=== PATIENT | female | born 1970 | race Caucasian/White ===

== ENCOUNTER → 2016-11-03 | Outpatient (CLI) | payer BC ==
[~2016-11-03] MED LIST: ALUMCHW6 PO; ESTRD2 PO; LANS30CA12 PO; LISI10TA PO
== END | disposition home or self-care (01) ==
LOC: C.RDSM 14:30
PROVIDERS: ATTEND Orthopaedic Surgery Sports Medicine
DX: M54.2 Cervicalgia (principal); S29.012A Strain of muscle and tendon of back wall of thorax, initial encounter; X58.XXXA Exposure to other specified factors, initial encounter; M25.512 Pain in left shoulder

== ENCOUNTER 2023-12-21 09:18 | Observation (INO) ==
[2023-12-21] MEDS: ACETAMINOPHEN 1,000 MG/100 ML VIAL IV STA (10:03)
[2023-12-21] MEDS: FAMOTIDINE 20MG IV PUSH 20 MG/5 ML SYR IV STA (10:03)
[2023-12-21] MEDS: SODIUM CHLORIDE 0.9% 1,000 ML IV SCH (10:03)
[2023-12-21 10:09] LABS: Basophils # (auto) 0.07 K/uL (0.00-0.20); Basophils % (auto) 0.8 %; Eosinophils # (auto) 0.08 K/uL (0.00-0.50); Hematocrit (blood only) 42.6 % (37.0-47.0); Hemoglobin 13.8 g/dl (12.0-16.0); Immature Granulocytes # (auto) 0.04 K/uL (0.01-0.20); Immature Granulocytes % (auto) 0.5 %; Lymphocytes # (auto) 1.92 K/uL (1.20-3.40); Mean Corpuscular Hemoglobin 30.2 pg (25.0-34.0); Mean Corpuscular Hgb Conc 32.4 g/dL (32.0-36.0); Mean Corpuscular Volume 93.2 fL (80.0-100.0); Mean Platelet Volume 9.7 fL (9.4-12.4); Monocytes # (auto) 0.54 K/uL (0.11-0.59); Monocytes % (auto) 6.5 %; Neutrophils % (auto) 68.2 %; Platelet Count 382 K/uL (130-400); RDW Coefficient of Variation 12.6 % (11.5-14.5); RDW Standard Deviation 43.2 fL (36.4-46.3); Red Blood Count 4.57 M/uL (4.20-5.40); White Blood Count 8.35 K/ul (4.8-10.8)
--- NOTE | 2023-12-21 10:09 | Emergency Department Note ---
Impression & Plan Chest pain, Dyspnea, Lightheadedness ED Provider Note ED Provider Note NAME: DEBBIE WYMAN AGE:53 SEX: Female : 1970 ARRIVES VIA: Private vehicle INFORMANT: Patient ED PROVIDER(s): Mirian Murdock DO CHIEF COMPLAINT: Chest pain, shortness of breath HPI: This is a 53-year-old female who presents emergency department due to concern for chest pain and shortness of breath. Patient states symptoms began yesterday. She states she noticed it was worse with exertion but was still present at rest. She states she also feels lightheaded when she stands and walks. She denies any recent URI symptoms, fevers or chills. No recent GERD type symptoms. She states she does have a history of asthma but this feels very different than her usual asthma exacerbation. She denies any abdominal pain, change in urine, or change in bowel movements. She states last week she noted some intermittent left foot swelling although states she did not notice any this morning. She states the chest pain is central and slightly left-sided and does radiate into her left upper extremity. She states her left upper extremity feels intermittently swollen and tingly additionally. No prior similar episodes. No history of heart problems. PAST MEDICAL HISTORY:See Below PAST SURGICAL HISTORY:See Below FAMILY HISTORY:See Below SOCIAL HISTORY:See Below HOME MEDICATIONS:See Below ALLERGIES:See Below VITALS:See Below PHYSICAL EXAMINATION: GENERAL: alert, well appearing, well nourished, no distress, non-toxic EYE EXAM: normal conjunctiva, PERRL and EOM's grossly intact OROPHARYNX: no exudate, no erythema, lips, buccal mucosa, and tongue normal and mucous membranes are moist NECK: supple, no nuchal rigidity, no adenopathy, non-tender LUNGS: Clear to auscultation. Normal chest wall mechanics, no w/r/r HEART: no murmurs, S1 normal and S2 normal, pain with palpation in the inferior central chest over the lower half of the sternum as well as at the left sternal border ABDOMEN: abdomen soft, non-tender, normo-active bowel sounds, no masses, no rebound or guarding. BACK: Back is symmetrical on inspection and there is no deformity, no midline tenderness, no CVA tenderness. SKIN: no rashes, petechiae, orbruising UPPER EXTREMITIES: upper extremities are grossly normal. FROM, nml pulses b/l. LOWER EXTREMITIES: No pitting edema. FROM, nml pulses b/l. NEURO EXAM: Normal sensorium, cranial nerves II-XII grossly intact, normal speech, no facial droop,nogross weakness of arms, no gross weakness of legs. Gross sensation intact. No ataxia. Vital Signs: reviewed and remarkable Differential Diagnosis: acute coronary syndrome, pericarditis, pulmonary embolus, aortic dissection, pneumonia, pneumothorax, musculoskeletal pain, shingles, GERD, GI bleed, as well as others were considered MEDICAL DECISION MAKING: This is a 53-year-old female who presents emergency department due to concern for chest pain and shortness of breath. Labs drawn and sent, IV established, EKG and chest x-ray performed bedside interpreted by me and was monitored on telemetry. No acute EKG changes noted and initial troponin negative. D-dimer however markedly elevated so after additional discussion at bedside with the patient, she was sent for CT angiography of the chest. Patient started on gentle IV fluid hydration due to concern for additional orthostatic lightheadedness, given IV Tylenol initially. She was also given IV Pepcid and IV Zofran. Patient sent for CT angiography of the chest which was ultimately reassuring once read by radiology. IV Toradol and IV fentanyl given additionally for pain. Bio fire nasal swab sent and ultimately negative, and left lower extremity Doppler due to swelling last week performed and also negative. Patient with persistent chest pain and shortness of breath with any attempts at ambulation. Lightheadedness only present when she first stands up. Patient otherwise had a nonfocal neuroexam. Given unclear etiology of symptoms and persistence despite reassuring evaluation thus far, case discussed with the hospitalist team for additional evaluation and management. Consultation(s): 1508: Discussed with Maldonado Polanco hospitalist team, for additional evaluation and management. ER Treatment Provided: See below Diagnostics Interpreted By Me: -ECG: Normal sinus at 83, normal axis, normal intervals, no acute ST/T wave changes -Cardiac Monitoring: An order was placed for continuous cardiac monitoring. The monitor shows a rate of 80 with normal sinus rhythm. -Laboratory studies: As stated above and show below. -Imaging studies: X-ray Chest: A single view study of the chest was reviewed and was negative for cardiomegaly, focal infiltrate, effusion, pulmonary edema, or wide mediastinum. Triage Nursing Note Reviewed Prior/Outside Records Reviewed Past Med/Surg History Problem List (Updated 12/21/23 @ 15:40 by Jeny Smiley PA-C) GERD (gastroesophageal reflux disease) HTN (hypertension) HAMIDA (obstructive sleep apnea) Asthma Chronic pain syndrome S/P appendectomy Lightheadedness (Acute) Dyspnea (Acute) Chest pain (Acute) Otalgia of left ear (Acute) Right flank pain (Acute) Right sided abdominal pain (Acute) Medical History (Updated 12/21/23 @ 15:40 by Jeny Smiley PA-C) History of asthma History of hypertension Surgical History (Updated 12/21/23 @ 15:41 by Jeny Smiley PA-C) Hx of submandibular gland removal S/P cholecystectomy S/P total abdominal hysterectomy History of appendectomy Family History Other Asthma Diabetes Hypertension Social History Smoking Status: Never smoker Second Hand Exposure: No; Do You Dip or Chew Tobacco: No; Hx Alcohol Use: No Hx Substance Use: No Preferred Language: Vincentian Communication Ability: Effective Director Software Development Required: No Beliefs That Will Affect Care: None Current Living Situation: Spouse Feels Safe at Home: Yes Safety Concerns: Feels Safe At This Time Assistive Devices: None Allergies Allergies Allergy/AdvReac Type Severity Reaction Status Date / Time amoxicillin Allergy Severe PCN-EDEMA Verified 12/21/23 12:49 FACE/LIPS/TONGUE cephalexin Allergy Severe SWELLING Verified 12/21/23 12:49 OF FACE & TONGUE codeine Allergy Severe FACE & Verified 12/21/23 12:49 TONGUE SWELL corn Allergy Severe Hives Unverified 12/21/23 12:49 Penicillins Allergy Severe EDEMA OF Verified 12/21/23 12:49 FACE/LIPS/TONGUE, SHORT OF BREATH/HIVES Sulfa (Sulfonamide Allergy Severe FACE Verified 12/21/23 12:49 Antibiotics) SWELLING/HIVES carisoprodol Allergy Intermediate HIVES/HEADA Verified 12/21/23 12:49 JENNA lorazepam Allergy Intermediate HEADACHES Verified 12/21/23 12:49 montelukast [From [facility]] Allergy Intermediate RASH/TONGUE Verified 12/21/23 12:49 FELT THICK duloxetine Allergy Unknown ON Verified 12/21/23 12:49 [facility] prednisone Allergy Unknown ON Verified 12/21/23 12:49 [facility] carbamazepine AdvReac Intermediate CHEST Verified 12/21/23 12:49 TIGHTNESS/N&V/SEVERE IBARRA/WEAKNESS clindamycin AdvReac Intermediate Gastrointestinal Verified 12/21/23 12:49 Upset gabapentin AdvReac Intermediate CHEST Verified 12/21/23 12:49 TIGHTNESS/N&V/SEVERE IBARRA/WEAKNESS metronidazole AdvReac Intermediate GI Verified 12/21/23 12:49 UPSET/HEADACHE Home Meds Home Medications Medication Instructions Recorded Confirmed albuterol sulfate 2.5 mg/3 mL 2.5 mg inhalation Q4H PRN 02/12/21 12/21/23 (0.083 %) solution for nebulization Shortness Of Breath Or Wheezing albuterol sulfate 90 mcg/actuation 2 puff inhalation QID PRN 02/12/21 12/21/23 aerosol inhaler (ProAir HFA) Shortness Of Breath Or Wheezing aluminum hydrox-magnesium carb 95 30 ml PO DAILY 02/12/21 12/21/23 mg-358 mg/15 mL oral suspension (Gaviscon) estradiol 1 mg tablet 1 mg PO QAM 02/12/21 12/21/23 fluconazole 150 mg tablet 150 mg PO UD PRN YEAST INFECTION 02/12/21 12/21/23 lansoprazole 30 mg capsule,delayed 30 mg PO QAM 02/12/21 12/21/23 release lisinopril 20 mg tablet 20 mg PO HS 12/13/23 12/21/23 nystatin 100,000 unit/gram topical 1 applic topical DIRECTED PRN 12/13/23 12/21/23 cream Skin Irritation terconazole 0.8 % vaginal cream 1 applic vaginal UD PRN -- 12/21/23 12/21/23 Results & Data (ED) Vital Signs Vital Signs - 24 hr 12/21/23 09:21 12/21/23 09:42 12/21/23 09:42 Temperature 36.3 C L Temperature Source Temporal Artery Scan Pulse Rate 80 82 Pulse Rate from SpO2 Sensor 80 Respiratory Rate 18 15 Respiratory Effort / Characteristics Non-Labored Respiratory Depth Normal Respiratory Pattern Regular Blood Pressure 161/90 H Blood Pressure Mean 113 Pulse Oximetry 98 96 Oxygen Delivery Method Room Air Room Air Sepsis Recent Fever Within 48 Hours No Sepsis New/Unexplained Change in Mental Status N/A Sepsis Action Taken by Nursing No Action Required 12/21/23 09:50 12/21/23 10:00 12/21/23 10:00 Temperature Temperature Source Pulse Rate 80 75 Pulse Rate from SpO2 Sensor 82 74 Respiratory Rate 18 19 Respiratory Effort / Characteristics Respiratory Depth Respiratory Pattern Blood Pressure 143/82 H Blood Pressure Mean 97 Pulse Oximetry 99 98 Oxygen Delivery Method Sepsis Recent Fever Within 48 Hours Sepsis New/Unexplained Change in Mental Status Sepsis Action Taken by Nursing 12/21/23 10:10 12/21/23 10:16 12/21/23 10:20 Temperature Temperature Source Pulse Rate 77 68 68 Pulse Rate from SpO2 Sensor 77 68 Respiratory Rate 17 16 Respiratory Effort / Characteristics Respiratory Depth Respiratory Pattern Blood Pressure Blood Pressure Mean Pulse Oximetry 98 97 Oxygen Delivery Method Sepsis Recent Fever Within 48 Hours Sepsis New/Unexplained Change in Mental Status Sepsis Action Taken by Nursing 12/21/23 10:30 12/21/23 10:31 12/21/23 10:31 Temperature Temperature Source Pulse Rate 67 68 Pulse Rate from SpO2 Sensor 66 68 Respiratory Rate 16 15 Respiratory Effort / Characteristics Respiratory Depth Respiratory Pattern Blood Pressure 135/77 Blood Pressure Mean 92 Pulse Oximetry 98 97 Oxygen Delivery Method Sepsis Recent Fever Within 48 Hours Sepsis New/Unexplained Change in Mental Status Sepsis Action Taken by Nursing 12/21/23 11:00 12/21/23 11:00 12/21/23 11:36 Temperature Temperature Source Pulse Rate 68 Pulse Rate from SpO2 Sensor 69 88 Respiratory Rate 16 Respiratory Effort / Characteristics Respiratory Depth Respiratory Pattern Blood Pressure 145/73 H Blood Pressure Mean 98 Pulse Oximetry 97 99 Oxygen Delivery Method Sepsis Recent Fever Within 48 Hours Sepsis New/Unexplained Change in Mental Status Sepsis Action Taken by Nursing 12/21/23 12:18 12/21/23 12:30 12/21/23 12:30 Temperature Temperature Source Pulse Rate 68 71 Pulse Rate from SpO2 Sensor Respiratory Rate 14 20 Respiratory Effort / Characteristics Respiratory Depth Respiratory Pattern Blood Pressure 158/84 H Blood Pressure Mean 109 Pulse Oximetry 95 Oxygen Delivery Method Sepsis Recent Fever Within 48 Hours Sepsis New/Unexplained Change in Mental Status Sepsis Action Taken by Nursing 12/21/23 13:00 12/21/23 13:01 12/21/23 13:01 Temperature Temperature Source Pulse Rate 67 69 Pulse Rate from SpO2 Sensor Respiratory Rate 18 18 Respiratory Effort / Characteristics Respiratory Depth Respiratory Pattern Blood Pressure 135/81 Blood Pressure Mean 90 Pulse Oximetry Oxygen Delivery Method Sepsis Recent Fever Within 48 Hours Sepsis New/Unexplained Change in Mental Status Sepsis Action Taken by Nursing 12/21/23 13:30 12/21/23 13:30 12/21/23 14:49 Temperature Temperature Source Pulse Rate 76 Pulse Rate from SpO2 Sensor 67 Respiratory Rate 24 Respiratory Effort / Characteristics Respiratory Depth Respiratory Pattern Blood Pressure 126/83 Blood Pressure Mean 97 Pulse Oximetry 98 Oxygen Delivery Method Sepsis Recent Fever Within 48 Hours Sepsis New/Unexplained Change in Mental Status Sepsis Action Taken by Nursing 12/21/23 14:50 12/21/23 14:50 12/21/23 15:00 Temperature Temperature Source Pulse Rate 75 Pulse Rate from SpO2 Sensor 74 Respiratory Rate 19 Respiratory Effort / Characteristics Respiratory Depth Respiratory Pattern Blood Pressure 142/83 H 145/79 H Blood Pressure Mean 104 107 Pulse Oximetry 98 Oxygen Delivery Method Sepsis Recent Fever Within 48 Hours Sepsis New/Unexplained Change in Mental Status Sepsis Action Taken by Nursing 12/21/23 15:00 12/21/23 15:30 12/21/23 15:30 Temperature Temperature Source Pulse Rate 64 64 Pulse Rate from SpO2 Sensor 65 65 Respiratory Rate 15 16 Respiratory Effort / Characteristics Respiratory Depth Respiratory Pattern Blood Pressure 141/83 H Blood Pressure Mean 107 Pulse Oximetry 97 97 Oxygen Delivery Method Sepsis Recent Fever Within 48 Hours Sepsis New/Unexplained Change in Mental Status Sepsis Action Taken by Nursing 12/21/23 16:00 12/21/23 16:00 Temperature Temperature Source Pulse Rate 79 Pulse Rate from SpO2 Sensor 78 Respiratory Rate 23 Respiratory Effort / Characteristics Respiratory Depth Respiratory Pattern Blood Pressure 156/84 H Blood Pressure Mean 98 Pulse Oximetry 98 Oxygen Delivery Method Sepsis Recent Fever Within 48 Hours Sepsis New/Unexplained Change in Mental Status Sepsis Action Taken by Nursing Laboratory Data 12/21/23 09:48 12/21/23 09:48 Lab Results 12/21/23 12/21/23 12/21/23 Range/Units 09:48 10:23 13:42 WBC 8.35 (4.8-10.8) K/ul RBC 4.57 (4.20-5.40) M/uL Hgb 13.8 (12.0-16.0) g/dl Hct 42.6 (37.0-47.0) % MCV 93.2 (80.0-100.0) fL MCH 30.2 (25.0-34.0) pg MCHC 32.4 (32.0-36.0) g/dL RDW Std Deviation 43.2 (36.4-46.3) fL RDW Coeff of Olena 12.6 (11.5-14.5) % Plt Count 382 (130-400) K/uL MPV 9.7 (9.4-12.4) fL Immature Gran % (Auto) 0.5 % Neut % (Auto) 68.2 % Lymph % (Auto) 23.0 % Stoddard % (Auto) 6.5 % Eos % (Auto) 1.0 % Baso % (Auto) 0.8 % Neut # (Auto) 5.70 (1.40-6.50) K/uL Lymph # (Auto) 1.92 (1.20-3.40) K/uL Stoddard # (Auto) 0.54 (0.11-0.59) K/uL Eos # (Auto) 0.08 (0.00-0.50) K/uL Baso # (Auto) 0.07 (0.00-0.20) K/uL Immature Gran # (Auto) 0.04 (0.01-0.20) K/uL D-Dimer Cancelled 2180 H* Sodium 141 (136-145) mmol/L Potassium 3.8 (3.5-5.1) mmol/L Chloride 104 (98-107) mmol/L Carbon Dioxide 26 (21-32) mmol/L Anion Gap 11 (3-11) BUN 7 (6-23) mg/dl Creatinine 0.97 (0.6-1.2) mg/dl Est Cr Clr Drug Dosing 74.8 ml/min Est GFR ( Amer) 77.8 ml/min Est GFR (Non-Af Amer) 67.2 ml/min BUN/Creatinine Ratio 7.2 L (10-20) Glucose 103 H (70-99(Fasting)) mg/dl Calcium 10.3 (8.6-10.3) mg/dl Magnesium 2.2 (1.7-2.4) mg/dl Total Bilirubin 0.4 (0.2-1.0) mg/dl AST 17 (13-39) U/L ALT 13 (7-52) U/L Alkaline Phosphatase 102 (34-104) U/L Troponin I High Sens 2.8 (0-14) pg/ml Total Protein 8.2 (6.0-8.3) gm/dl Albumin 5.0 (3.4-5.0) gm/dl Globulin 3.2 (2.5-4.0) gm/dl Albumin/Globulin Ratio 1.6 (0.9-2) Lipase 28 (11-82) U/L TSH 3.084 (0.300-4.500) uIu/ml Adenovirus (PCR) Not Detected (NotDetected) B. pertussis DNA (PCR) Not Detected (NotDetected) B.parapertussis DNA PCR Not Detected (NotDetected) C. pneumoniae DNA (PCR) Not Detected (NotDetected) Coronavirus OC43 (PCR) Not Detected (NotDetected) Coronavirus HKU1 (PCR) Not Detected (NotDetected) Coronavirus 229E (PCR) Not Detected (NotDetected) SARS-CoV-2 (PCR) Not Detected (NotDetected) Coronavirus NL63 (PCR) Not Detected (NotDetected) Human Metapneumovir PCR Not Detected (NotDetected) Influenza Type A (PCR) Not Detected (NotDetected) Influenza Type B (PCR) Not Detected (NotDetected) M. pneumoniae (PCR) Not Detected (NotDetected) Parainfluenza 1 (PCR) Not Detected (NotDetected) Parainfluenza 2 (PCR) Not Detected (NotDetected) Parainfluenza 3 (PCR) Not Detected (NotDetected) Parainfluenza 4 (PCR) Not Detected (NotDetected) RSV (PCR) Not Detected (NotDetected) Entero/Rhino (PCR) Not Detected (NotDetected) 12/21/23 Range/Units 15:21 WBC (4.8-10.8) K/ul RBC (4.20-5.40) M/uL Hgb (12.0-16.0) g/dl Hct (37.0-47.0) % MCV (80.0-100.0) fL MCH (25.0-34.0) pg MCHC (32.0-36.0) g/dL RDW Std Deviation (36.4-46.3) fL RDW Coeff of Olena (11.5-14.5) % Plt Count (130-400) K/uL MPV (9.4-12.4) fL Immature Gran % (Auto) % Neut % (Auto) % Lymph % (Auto) % Stoddard % (Auto) % Eos % (Auto) % Baso % (Auto) % Neut # (Auto) (1.40-6.50) K/uL Lymph # (Auto) (1.20-3.40) K/uL Stoddard # (Auto) (0.11-0.59) K/uL Eos # (Auto) (0.00-0.50) K/uL Baso # (Auto) (0.00-0.20) K/uL Immature Gran # (Auto) (0.01-0.20) K/uL D-Dimer Sodium (136-145) mmol/L Potassium (3.5-5.1) mmol/L Chloride (98-107) mmol/L Carbon Dioxide (21-32) mmol/L Anion Gap (3-11) BUN (6-23) mg/dl Creatinine (0.6-1.2) mg/dl Est Cr Clr Drug Dosing ml/min Est GFR ( Amer) ml/min Est GFR (Non-Af Amer) ml/min BUN/Creatinine Ratio (10-20) Glucose (70-99(Fasting)) mg/dl Calcium (8.6-10.3) mg/dl Magnesium (1.7-2.4) mg/dl Total Bilirubin (0.2-1.0) mg/dl AST (13-39) U/L ALT (7-52) U/L Alkaline Phosphatase (34-104) U/L Troponin I High Sens 4.5 (0-14) pg/ml Total Protein (6.0-8.3) gm/dl Albumin (3.4-5.0) gm/dl Globulin (2.5-4.0) gm/dl Albumin/Globulin Ratio (0.9-2) Lipase (11-82) U/L TSH (0.300-4.500) uIu/ml Adenovirus (PCR) (NotDetected) B. pertussis DNA (PCR) (NotDetected) B.parapertussis DNA PCR (NotDetected) C. pneumoniae DNA (PCR) (NotDetected) Coronavirus OC43 (PCR) (NotDetected) Coronavirus HKU1 (PCR) (NotDetected) Coronavirus 229E (PCR) (NotDetected) SARS-CoV-2 (PCR) (NotDetected) Coronavirus NL63 (PCR) (NotDetected) Human Metapneumovir PCR (NotDetected) Influenza Type A (PCR) (NotDetected) Influenza Type B (PCR) (NotDetected) M. pneumoniae (PCR) (NotDetected) Parainfluenza 1 (PCR) (NotDetected) Parainfluenza 2 (PCR) (NotDetected) Parainfluenza 3 (PCR) (NotDetected) Parainfluenza 4 (PCR) (NotDetected) RSV (PCR) (NotDetected) Entero/Rhino (PCR) (NotDetected) Administered Medications Acetaminophen (Acetaminophen 325 Mg Tab) 650 mg PO Q4H PRN PRN Reason: Moderate Pain (Scale 4, 5, 6) Stop: 01/20/24 19:12 Last Admin: 12/21/23 21:44 Dose: 650 mg Documented By: WALLY Estradiol (Estradiol 1 Mg Tab) 1 mg PO [facility] Stop: 01/20/24 19:12 Last Admin: 12/21/23 20:39 Dose: 1 mg Documented By: WALLY Lisinopril (Lisinopril 20 Mg Tab) 20 mg PO [facility] Stop: 01/20/24 19:12 Last Admin: 12/21/23 20:39 Dose: 20 mg Documented By: WALLY Discontinued Medications Fentanyl Citrate (Fentanyl Citrate Pf 100 Mcg/2 Ml Vial) 50 mcg IV NOW STA Stop: 12/21/23 14:52 Last Admin: 12/21/23 15:15 Dose: Not Given Documented By: KEVIN Sodium Chloride (Nss) 1,000 mls @ 250 mls/hr IV .Q4H [facility] Stop: 01/20/24 09:59 Last Admin: 12/21/23 20:44 Dose: Not Given Documented By: Infusion: 12/21/23 20:43 Dose: Infused Documented By: Admin: 12/21/23 14:51 Dose: 250 mls/hr Documented By: Infusion: 12/21/23 14:03 Dose: Infused Documented By: Admin: 12/21/23 10:03 Dose: 250 mls/hr Documented By: HERMELINDO Acetaminophen (Ofirmev) 1,000 mg in 100 mls @ 400 mls/hr IV NOW STA Stop: 12/21/23 10:05 Last Infusion: 12/21/23 10:27 Dose: Infused Documented By: Admin: 12/21/23 10:03 Dose: 400 mls/hr Documented By: HERMELINDO Famotidine (Pepcid 20mg Iv Push) 20 mg in 5 mls @ 2.5 mls/min IV NOW STA Stop: 12/21/23 09:52 Last Admin: 12/21/23 10:03 Dose: 2.5 mls/min Documented By: HERMELINDO Pantoprazole Sodium 40 mg/ (Syringe) 10 mls @ 5 mls/min IV NOW ONE Stop: 12/21/23 14:52 Last Admin: 12/21/23 15:15 Dose: 5 mls/min Documented By: KEVIN Ioversol (Optiray 320 125ml) 120 ml IV ONCE ONE Stop: 12/21/23 12:10 Last Admin: 12/21/23 12:09 Dose: 120 ml Documented By: MURALI Ketorolac Tromethamine (Ketorolac Tromethamine 15 Mg/Ml Vial) 10 mg IV NOW ONE Stop: 12/21/23 13:37 Last Admin: 12/21/23 13:48 Dose: 10 mg Documented By: HERMELINDO Imaging Data Radiologist's Impression: Chest X-Ray 12/21/23 09:52 XR chest 1V portable CLINICAL HISTORY: cp, sob TECHNIQUE: Single frontal radiograph of the chest was obtained. Comparison: None available at the time of this dictation. FINDINGS: No lines and tubes are seen. The cardiomediastinal silhouette is normal. The lungs are clear. No evidence of pleural effusion or pneumothorax. IMPRESSION: No acute chest disease. ACT 112: Negative or not required by law. Electronically signed by: Alfredo Wray M.D. 12/21/2023 10:28 AM Chest CTA 12/21/23 11:45 CT angio chest PE protocol CT DOSE: 668.77 mGy.cm HISTORY: 53 years-old Female with PE. Acute shortness of breath TECHNIQUE: Multiple CTA images of the chest were obtained after the intravenous administration of 120 ml Optiray. Coronal and sagittal MIPS were obtained from the axial data set and were submitted for review. All measurements were obtained according to NASCET criteria. A dose lowering technique was utilized adhering to the principles of ALARA. COMPARISON: Chest radiograph of same day, chest CT 06/24/2015 FINDINGS: CTA: The heart is normal in size. Moderate coronary artery calcifications. Unremarkable thoracic aorta. No pulmonary emboli identified. The subsegmental branches are not well evaluated secondary to respiratory motion. CT CHEST: Unremarkable thyroid. No lymphadenopathy. There is no pneumothorax, pleural effusion, airspace consolidation or pulmonary edema. The central airways are patent. No acute upper abdominal abnormality. Colonic diverticulosis. Unremarkable soft tissues. No acute fracture. IMPRESSION: Unremarkable CTA of the chest. No pulmonary emboli identified. ACT 112: Negative or not required by law. The above report was generated using voice recognition software. It may contain grammatical, syntax or spelling errors. Electronically signed by: Tacho uDgan M.D. 12/21/2023 12:58 PM Venous Doppler Study 12/21/23 13:36 LEFT LOWER EXTREMITY VENOUS DOPPLER HISTORY: Acute pain and swelling of the left lower leg edema COMPARISON STUDY: 02/12/2021 FINDINGS: There is normal compressibility, flow, and augmentation within the left lower extremity deep venous system. IMPRESSION: No DVT within the left lower extremity. ACT 112: Negative or not required by law. Electronically signed by: Tacho Dugan M.D. 12/21/2023 2:56 PM Discharge Plan Visit Data Chief Complaint: Chest Pain Stated Complaint: CHEST TIGHTNESS,LEFT ARM PAIN, FOOT SWELLING,SOB ED Provider: Mirian Murdock Discharge Problem: Chest pain, Dyspnea, Lightheadedness Patient Disposition: Admitted As Inpatient Discharge Instructions Interventions: ED Discharge Assessment Last Done: 12/21/23 18:39
[2023-12-21 10:19] LABS: Albumin Globulin Ratio 1.6 (0.9-2); BUN Creatinine Ratio 7.2 (10-20); Bilirubin,Total 0.4 mg/dl (0.2-1.0); Calcium 10.3 mg/dl (8.6-10.3); Creatinine Clr Calc Pharmacy 74.8 ml/min; Est GFR (African American) 77.8 ml/min; Est GFR (Non-African American) 67.2 ml/min; Globulin 3.2 gm/dl (2.5-4.0); Magnesium 2.2 mg/dl (1.7-2.4); Potassium 3.8 mmol/L (3.5-5.1); Total Protein 8.2 gm/dl (6.0-8.3)
[2023-12-21 10:25] LABS: Troponin I High Sensitivity 2.8 pg/ml (0-14)
--- NOTE | 2023-12-21 10:29 | XRay Report ---
XR chest 1V portable CLINICAL HISTORY: cp, sob TECHNIQUE: Single frontal radiograph of the chest was obtained. Comparison: None available at the time of this dictation. FINDINGS: No lines and tubes are seen. The cardiomediastinal silhouette is normal. The lungs are clear. No evid ence of pleural effusion or pneumothorax. IMPRESSION: No acute chest disease. ACT 112: Negative or not required by law. Electronically signed by: Alfredo Wray M.D. 12/21/2023 10:28 AM
[2023-12-21 10:34] LABS: Thyroid Stimulating Hormone 3.084 uIu/ml (0.300-4.500)
[2023-12-21 11:46] LABS: D Dimer 2180 ug/L FEU (0-500)
[2023-12-21] MEDS: OPTIRAY 320 125ml IV ONE (12:09)
--- NOTE | 2023-12-21 13:01 | CT Scan Report ---
CT angio chest PE protocol CT DOSE: 668.77 mGy.cm HISTORY: 53 years-old Female with PE. Acute shortness of breath TECHNIQUE: Multiple CTA images of the chest were obtained after the intravenous administration of 120 ml Optiray. Coronal and sagittal MIPS were obtained from the axial data set and were submitted for review. All measurements were obtained according to NASCET criteria. A dose lowering technique was u tilized adhering to the principles of ALARA. COMPARISON: Chest radiograph of same day, chest CT 06/24/2015 FINDINGS: CTA: The heart is normal in size. Moderate coronary artery calcifications. Unremarkable thoracic aorta. No pulmonary emboli identified. The subsegmental branches are not well evaluated secondary to respirato ry motion. CT CHEST: Unremarkable thyroid. No lymphadenopathy. There is no pneumothorax, pleural effusion, airspace consol idation or pulmonary edema. The central airways are patent. No acute upper abdominal abnormality. Col onic diverticulosis. Unremarkable soft tissues. No acute fracture. IMPRESSION: Unremarkable CTA of the chest. No pulmonary emboli identified. ACT 112: Negative or not required by law. The above report was generated using voice recognition software. It may contain grammatical, syntax o r spelling errors. Electronically signed by: Tacho Dugan M.D. 12/21/2023 12:58 PM
[2023-12-21] MEDS: KETOROLAC TROMETHAMINE 15 MG/ML VIAL IV ONE (13:48)
[2023-12-21 14:49] LABS: Adenovirus PCR Not Detected (NotDetected); Bordetella parapertussis PCR Not Detected (NotDetected); Bordetella pertussis PCR Not Detected (NotDetected); Chlamydia pneumoniae PCR Not Detected (NotDetected); Coronavirus 229E PCR Not Detected (NotDetected); Coronavirus CoV-2 (COVID19)PCR Not Detected (NotDetected); Coronavirus HKU1 PCR Not Detected (NotDetected); Coronavirus NL63 PCR Not Detected (NotDetected); Coronavirus OC43PCR Not Detected (NotDetected); Human Metapneumovirus PCR Not Detected (NotDetected); Influenza A PCR Not Detected (NotDetected); Influenza B PCR Not Detected (NotDetected); Mycoplasma pneumoniae PCR Not Detected (NotDetected); Parainfluenza Virus 1 PCR Not Detected (NotDetected); Parainfluenza Virus 2 PCR Not Detected (NotDetected); Parainfluenza Virus 3 PCR Not Detected (NotDetected); Parainfluenza Virus 4 PCR Not Detected (NotDetected); Respiratory Syncytial VirusPCR Not Detected (NotDetected); Rhinovirus/Enterovirus PCR Not Detected (NotDetected)
--- NOTE | 2023-12-21 14:57 | Ultrasound Report ---
LEFT LOWER EXTREMITY VENOUS DOPPLER HISTORY: Acute pain and swelling of the left lower leg edema COMPARISON STUDY: 02/12/2021 FINDINGS: There is normal compressibility, flow, and augmentation within the left lower extremity barron p venous system. IMPRESSION: No DVT within the left lower extremity. ACT 112: Negative or not required by law. Electronically signed by: Tacho Dugan M.D. 12/21/2023 2:56 PM
[2023-12-21] MEDS: fentaNYL citrate PF 100 MCG/2 ML VIAL IV STA (15:15)
[2023-12-21] MEDS: PANTOprazole 40 MG in SYRINGE 0 ML IV ONE (15:15)
--- NOTE | 2023-12-21 15:17 | History & Physical Report ---
<Statement entered by Tommy Mack, - 12/21/23 17:28> I have seen and examined the patient and have discussed the case with the provider above. I have reviewed the advanced practitioner's documentation, and I agree with, and take responsibility for that plan of care. 15 minutes spent in additional care of the patient Patient seen and examined while still in the ED. Patient states that her pain is somewhat improved but definitely different from her postsurgical pain. Requesting only Tylenol and Motrin for pain control. Patient nontoxic in appearance CV: Regular Respiratory: No tachypnea. Patient aware of plan for echocardiogram and possible outpatient stress testing. Rest of plan as outlined below Date of Service December 21, 2023 Assessment & Plan (1) Chest pain: (2) Dyspnea: Plan: - Admit to tele for observation for r/o - Trend cardiac biomarkers, initial set was negative - EKG reviewed as above without significant changes - Check 2 D echo - Check BNP - Resp Biofire was neg, CTA of the chest is negative although she has an elevated d-dimer of >2100 - If negative enzymes can consider a stress test tomorrow morning - consider cardiology consult per day team - PT/OT consulted (3) Chronic pain syndrome: Plan: Has failed and/or reacted to oxycodone, topical lidocaine, cymbalta, gabapentin, carbamazepine, oral steroid, soma-- per neuro surgery (4) Hx of submandibular gland removal: Plan: - Chronic issues with left facial pain s/p surgery - does not seem to be causing associated shortness of breath and chest pain at this time. - following with Dr. Obregon with neurosurgery as outpatient for chronic left anterior neck pain s/p submandibular gland removal in Sep 2023. She had outpatient MRI of the head and neck completed 12/02/23 however has not yet been back to see neurosurgery for discussion of the results, and they are not available in the [facility] system for review. (5) Asthma: Plan: - Chronic, stable and controlled-reports that most exacerbating factors are perfumes/colognes (6) HTN (hypertension): Plan: -BP is stable at 141/83, takes lisinopril 20 mg every afternoon, give dose now as per her normal routine (7) HAMIDA (obstructive sleep apnea): Plan: -History of such, chronic (8) GERD (gastroesophageal reflux disease): Plan: - continue lansoprazole DVT ppx: teds, scds Lines: 2 PIV FEN/GI: HH/easy to chew diet CODE: Full code Dispo: From home, likely to remain in the hospital x 1-2 days A total of 75 minutes were spent with greater than 50% of that time face to face with the patient, personally reviewing all current laboratories, imaging studies, past medication reconciliation, outpatient chart review, and discussion with specialists to collaborate care for the patient with attending. Please see attending documentation for corrections and/or additions. History of Present Illness Chief Complaint: Chest pain, lightheadedness Primary Care Provider: Sylvia Ulloa PA-C This is a 53 yo F with PMHx of chronic pain, HAMIDA, HTN, GERD and hx of following with Dr. Obregon with neurosurgery as outpatient for chronic left anterior neck pain s/p submandibular gland removal in Sep 2023. She had outpatient MRI of the head and neck completed 12/02/23 however has not yet been back to see neurosurgery for discussion of the results, and they are not available in the [facility] system for review. Today pt presents for complain of chest pain, present with walking up a flight of stairs and associated shortness of breath, noticed yesterday. She admits to having increased chest pressure currently while lying in bed. Denies orthopnea or sob at rest. Pt notes having increased swelling in Left foot She does have some associated pain when I press on her chest wall, but states that it does not feel the same whenever she is doing exertional activities. Pt reports having lost 15 lbs since her submadibular surgery on 10/04/23 due to pain in the left side of her face, which extends into the left side of her neck and into the Left arm with arm numbness. Today, states that these things are not similar to her previous complaints and that her reasons for being here today are very different. Pt reports strong family hx with father having MN, stroke and triple bypass in his 60s, as well as brother with heart issues. Pt has mother with HTN and diabetes. Pt denies smoking, alcohol or ilicit drug use. Per recent neurosurgery outpatient note: diffuse L facial pain extending from forehead to mandible into L neck, posterior shoulder and into UE, extending to proximal forearm. This pain started more than eight months ago, significant hx LEFT submandibular gland excision 10/04/23 which seemed to exacerbate her pain. Followed closely with surgical team. Referred to physical therapy, although therapist was concerned to complete treatment until evaluated by geoscience specialist. Neurosurgery requesting consideration of injection - also ordered MRI brain, C spine and brachial plexus along with MRA neck - studies have not been completed at this time. Minimal relief with medication management - significant reactions to multiple medications used for pain including opioids, gabapentin, carbamazepine, oral steroid, soma and cymbalta. Symptoms occur daily. Describes pain as "sharp, rope around L UE." Significant allodynia - noting increased pain with light touch, hair brushing her face or posterior shoulder. Unable to provide aggravating or alleviating factors - constantly there. Admits associated paresthesia L face rather diffusely into L C spine and UE extending to proximal forearm. Has failed and/or reacted to oxycodone, topical lidocaine, cymbalta, gabapentin, carbamazepine, oral steroid, soma. Allergies Allergy/AdvReac Type Severity Reaction Status Date / Time amoxicillin Allergy Severe PCN-EDEMA Verified 12/21/23 12:49 FACE/LIPS/TONGUE cephalexin Allergy Severe SWELLING Verified 12/21/23 12:49 OF FACE & TONGUE codeine Allergy Severe FACE & Verified 12/21/23 12:49 TONGUE SWELL corn Allergy Severe Hives Unverified 12/21/23 12:49 Penicillins Allergy Severe EDEMA OF Verified 12/21/23 12:49 FACE/LIPS/TONGUE, SHORT OF BREATH/HIVES Sulfa (Sulfonamide Allergy Severe FACE Verified 12/21/23 12:49 Antibiotics) SWELLING/HIVES carisoprodol Allergy Intermediate HIVES/HEADA Verified 12/21/23 12:49 JENNA lorazepam Allergy Intermediate HEADACHES Verified 12/21/23 12:49 montelukast [From Singulair] Allergy Intermediate RASH/TONGUE Verified 12/21/23 12:49 FELT THICK duloxetine Allergy Unknown ON Verified 12/21/23 12:49 [facility] prednisone Allergy Unknown ON Verified 12/21/23 12:49 [facility] carbamazepine AdvReac Intermediate CHEST Verified 12/21/23 12:49 TIGHTNESS/N&V/SEVERE IBARRA/WEAKNESS clindamycin AdvReac Intermediate Gastrointestinal Verified 12/21/23 12:49 Upset gabapentin AdvReac Intermediate CHEST Verified 12/21/23 12:49 TIGHTNESS/N&V/SEVERE IBARRA/WEAKNESS metronidazole AdvReac Intermediate GI Verified 12/21/23 12:49 UPSET/HEADACHE Home Medications Medication Instructions Recorded Confirmed Type albuterol sulfate 2.5 mg/3 mL 2.5 mg inhalation Q4H PRN 02/12/21 12/21/23 History (0.083 %) solution for nebulization Shortness Of Breath Or Wheezing albuterol sulfate 90 mcg/actuation 2 puff inhalation QID PRN 02/12/21 12/21/23 History aerosol inhaler (ProAir HFA) Shortness Of Breath Or Wheezing aluminum hydrox-magnesium carb 95 30 ml PO DAILY 02/12/21 12/21/23 History mg-358 mg/15 mL oral suspension (Gaviscon) estradiol 1 mg tablet 1 mg PO QAM 02/12/21 12/21/23 History fluconazole 150 mg tablet 150 mg PO UD PRN YEAST INFECTION 02/12/21 12/21/23 History lansoprazole 30 mg capsule,delayed 30 mg PO QAM 02/12/21 12/21/23 History release lisinopril 20 mg tablet 20 mg PO HS 12/13/23 12/21/23 History nystatin 100,000 unit/gram topical 1 applic topical DIRECTED PRN 12/13/23 12/21/23 History cream Skin Irritation terconazole 0.8 % vaginal cream 1 applic vaginal UD PRN -- 12/21/23 12/21/23 History Past Med/Surg History Problem List (Updated 12/21/23 @ 15:40 by Jeny Smiley PA-C) GERD (gastroesophageal reflux disease) HTN (hypertension) HAMIDA (obstructive sleep apnea) Asthma Chronic pain syndrome S/P appendectomy Lightheadedness (Acute) Dyspnea (Acute) Chest pain (Acute) Otalgia of left ear (Acute) Right flank pain (Acute) Right sided abdominal pain (Acute) Medical History (Updated 12/21/23 @ 15:40 by Jeny Smiley PA-C) History of asthma History of hypertension Surgical History (Updated 12/21/23 @ 15:41 by Jeny Smiley PA-C) Hx of submandibular gland removal S/P cholecystectomy S/P total abdominal hysterectomy History of appendectomy Family History Other Asthma Diabetes Hypertension Social History Smoking Status: Never smoker Preferred Language: Omani Feels Safe at Home: Yes Review of Systems Review of Systems: Constitutional: No fever, chills, sweats, fatigue or weakness Eyes: No diplopia, + occasional blurred vision from left eye, otherwise no changes in vision ENT: No sore throat, tinnitus, or trouble swallowing Respiratory: + Dyspnea on exertion associated with climbing flight of stairs, at rest no shortness of breath, no orthopnea, no cough or sputum Cardiovascular: + As per HPI with chest pain, chest pressure, no palpitations, or flutter Abdomen: No pain, No constipation, No diarrhea, No nausea, No vomiting Musculoskeletal: No calf pain, No joint pain, left lower foot swelling last Tuesday now resolved Genitourinary : No dysuria or urinary frequency, No hematuria Neurologic: Chronic left upper arm numbness/tingling, left lower leg numbness, no difficulty with ambulation, no sensory or motor deficits Psychiatric: No depression or anxiety symptoms Endocrine: No fatigue, No weight changes Integumentary: No itch, No rash Physical Exam Physical Exam: General: awake, alert, no apparent distress, weight obese female Head: Normocephalic, atraumatic ENT: PERRL, EOMI, no pharyngeal exudate, mucous membranes moist Chest: Clear to auscultation, on room air, no adventitious breath sounds Cardiac: Regular rate and rhythm, no murmur, no JVD, normal peripheral pulses, good capillary refill, minimal tenderness with palpation of the chest wall bilaterally Abdominal: NABS x 4 quadrants, soft, nondistended, nontender to palpation, no rebound or guarding Extremities: Normal inspection, no peripheral edema or erythema, calfs nontender to palpation Psych: Normal mood and affect Neuro: AAO x 3, strength intact bilaterally and rated 5/5, no motor deficits, speech is clear, no peripheral sensory deficits Results & Data Results & Data Vital Signs (Past 12 Hours) Vital Signs Temp Pulse Resp BP Pulse Ox O2 Del Method 12/21/23 13:30 126/83 12/21/23 13:30 76 24 12/21/23 13:01 69 18 12/21/23 13:01 135/81 12/21/23 13:00 67 18 12/21/23 12:30 158/84 H 12/21/23 12:30 71 20 95 12/21/23 12:18 68 14 12/21/23 11:36 99 12/21/23 11:00 145/73 H 12/21/23 11:00 68 16 97 12/21/23 10:31 135/77 12/21/23 10:31 68 15 97 12/21/23 10:30 67 16 98 12/21/23 10:20 68 16 97 12/21/23 10:16 68 12/21/23 10:10 77 17 98 12/21/23 10:00 75 19 98 12/21/23 10:00 143/82 H 12/21/23 09:50 80 18 99 12/21/23 09:42 82 15 96 12/21/23 09:42 Room Air 12/21/23 09:21 36.3 C L 80 18 161/90 H 98 Room Air Laboratory Results 12/21/23 12/21/23 12/21/23 13:42 10:23 09:48 WBC 8.35 RBC 4.57 Hgb 13.8 Hct 42.6 MCV 93.2 MCH 30.2 MCHC 32.4 RDW Std Deviation 43.2 RDW Coeff of Olena 12.6 Plt Count 382 MPV 9.7 Immature Gran % (Auto) 0.5 Neut % (Auto) 68.2 Lymph % (Auto) 23.0 [place] % (Auto) 6.5 Eos % (Auto) 1.0 Baso % (Auto) 0.8 Neut # (Auto) 5.70 Lymph # (Auto) 1.92 [place] # (Auto) 0.54 Eos # (Auto) 0.08 Baso # (Auto) 0.07 Immature Gran # (Auto) 0.04 D-Dimer 2180 H* Cancelled Sodium 141 Potassium 3.8 Chloride 104 Carbon Dioxide 26 Anion Gap 11 BUN 7 Creatinine 0.97 Est Cr Clr Drug Dosing 74.8 Est GFR ( Amer) 77.8 Est GFR (Non-Af Amer) 67.2 BUN/Creatinine Ratio 7.2 L Glucose 103 H Calcium 10.3 Magnesium 2.2 Total Bilirubin 0.4 AST 17 ALT 13 Alkaline Phosphatase 102 Troponin I High Sens 2.8 Total Protein 8.2 Albumin 5.0 Globulin 3.2 Albumin/Globulin Ratio 1.6 Lipase 28 TSH 3.084 Adenovirus (PCR) Not Detected B. pertussis DNA (PCR) Not Detected B.parapertussis DNA PCR Not Detected C. pneumoniae DNA (PCR) Not Detected Coronavirus OC43 (PCR) Not Detected Coronavirus HKU1 (PCR) Not Detected Coronavirus 229E (PCR) Not Detected SARS-CoV-2 (PCR) Not Detected Coronavirus NL63 (PCR) Not Detected Human Metapneumovir PCR Not Detected Influenza Type A (PCR) Not Detected Influenza Type B (PCR) Not Detected M. pneumoniae (PCR) Not Detected Parainfluenza 1 (PCR) Not Detected Parainfluenza 2 (PCR) Not Detected Parainfluenza 3 (PCR) Not Detected Parainfluenza 4 (PCR) Not Detected RSV (PCR) Not Detected Entero/Rhino (PCR) Not Detected Diagnostic Findings Chest X-Ray 12/21/23 09:52 XR chest 1V portable CLINICAL HISTORY: cp, sob TECHNIQUE: Single frontal radiograph of the chest was obtained. Comparison: None available at the time of this dictation. FINDINGS: No lines and tubes are seen. The cardiomediastinal silhouette is normal. The lungs are clear. No evidence of pleural effusion or pneumothorax. IMPRESSION: No acute chest disease. ACT 112: Negative or not required by law. Electronically signed by: Alfredo Wray M.D. 12/21/2023 10:28 AM Chest CTA 12/21/23 11:45 CT angio chest PE protocol CT DOSE: 668.77 mGy.cm HISTORY: 53 years-old Female with PE. Acute shortness of breath TECHNIQUE: Multiple CTA images of the chest were obtained after the intravenous administration of 120 ml Optiray. Coronal and sagittal MIPS were obtained from the axial data set and were submitted for review. All measurements were obtained according to NASCET criteria. A dose lowering technique was utilized adhering to the principles of ALARA. COMPARISON: Chest radiograph of same day, chest CT 06/24/2015 FINDINGS: CTA: The heart is normal in size. Moderate coronary artery calcifications. Unremarkable thoracic aorta. No pulmonary emboli identified. The subsegmental branches are not well evaluated secondary to respiratory motion. CT CHEST: Unremarkable thyroid. No lymphadenopathy. There is no pneumothorax, pleural effusion, airspace consolidation or pulmonary edema. The central airways are patent. No acute upper abdominal abnormality. Colonic diverticulosis. Unremarkable soft tissues. No acute fracture. IMPRESSION: Unremarkable CTA of the chest. No pulmonary emboli identified. ACT 112: Negative or not required by law. The above report was generated using voice recognition software. It may contain grammatical, syntax or spelling errors. Electronically signed by: Tacho Dugan M.D. 12/21/2023 12:58 PM Venous Doppler Study 12/21/23 13:36 LEFT LOWER EXTREMITY VENOUS DOPPLER HISTORY: Acute pain and swelling of the left lower leg edema COMPARISON STUDY: 02/12/2021 FINDINGS: There is normal compressibility, flow, and augmentation within the left lower extremity deep venous system. IMPRESSION: No DVT within the left lower extremity. ACT 112: Negative or not required by law. Electronically signed by: Tacho Dugan M.D. 12/21/2023 2:56 PM ECG Additional Comments: Reviewed personally, no EKG changes noted Code Status & VTE Plan Code Status Full code-discussed with patient at bedside
--- NOTE | 2023-12-21 16:41 | Electrocardiogram Report ---
Test Reason : Blood Pressure : / mmHG Vent. Rate : 083 BPM Atrial Rate : 083 BPM P-R Int : 116 ms QRS Dur : 090 ms QT Int : 376 ms P-R-T Axes : -06 012 017 degrees QTc Int : 441 ms Normal sinus rhythm Nonspecific ST abnormality Abnormal ECG No previous ECGs available Confirmed by jT Adler ([id number]) on 12/21/2023 4:41:12 PM Referred By: REFERRED SELF Confirmed By:Cooper Adler
[2023-12-21] MEDS ORDERED: ONDANSETRON INJ 2 MG/ML 2 ML VIAL IV PRN (19:13)
[2023-12-21] MEDS ORDERED: ALBUTEROL 0.083% NEBU SOLN 3 ML VIAL INH PRN (19:13)
[2023-12-21] MEDS ORDERED: ALBUTEROL HFA 8 GM INHALER INH PRN (19:13)
[2023-12-21] MEDS: estradioL 1 MG TAB PO SCH (20:39)
[2023-12-21] MEDS: lisinopril 20 MG TAB PO SCH (20:39)
[2023-12-21] MEDS: ACETAMINOPHEN 325 MG TAB PO PRN (21:44)
--- NOTE | 2023-12-22 08:07 | Electrocardiogram Report ---
Test Reason : Blood Pressure : / mmHG Vent. Rate : 064 BPM Atrial Rate : 064 BPM P-R Int : 142 ms QRS Dur : 084 ms QT Int : 406 ms P-R-T Axes : 024 008 026 degrees QTc Int : 418 ms Normal sinus rhythm Normal ECG When compared with ECG of 21-DEC-2023 09:33, No significant change was found Confirmed by Tj Adler ([id number]) on 12/22/2023 8:07:17 AM Referred By: REFERRED SELF Confirmed By:Cooper Adler
--- OUTSIDE RECORDS SUMMARY | 2023-12-22 08:17 | External Medical Summary | Summary of Care ---
Author Name Unknown Organization [facility] Address [address] [place] [address] Phone [phone] Care Team Providers Care Home Hospice Aide Name Role Phone Sylvia Ulloa PA-C Primary Care Provider Encounter Details Date Type Department Care Team (Late st Contact Info) Description 12/02/2023 Orders Only Neurosurgery, [place] [address] [place] [address] Zoltan Obregon MD [address] [place] [address] Allergies Active Allergy Reactions Criticality Noted Date Comments Lorazepam 09/29/2016 Headaches Carbamazepine Er Other (Please comment) 024 Chest tightness, N/V, severe headache, weakness Cephalexin 04/13/2023 Swelling in face and tongue Clindamycin 04/13/2023 Gi upset Codeine High 06/01/2023 Face & tongue swelling Duloxetine 03/09/2023 Metronidazole 04/13/2023 Gi upset and headache Gabapentin Other (Please comment) 11/25/2023 Chest tightness, N/V, severe headache, weakness Penicillins Edema face/lips/tongue,Hives, Other (Please comment) High 09/28/2013 Shortness of breath Prednisone 03/09/2023 Montelukast 11/05/2016 Rash Tongue felt thick Carisoprodol Hives,Other (Please comment) Medium 09/28/2013 Headache Sulfa Antibiotics High 06/01/2023 Face swelling, Hives documented as of this encounter (statuses as of 12/13/2023) Medications Medication Sig Dispensed Refills Start Date End Date Status LANSOPRAZOLE 30 MG PO TBDP one tablet daily 0 Active GAVISCON 95-358 MG/15ML PO SUSP two teaspoons by mouth daily 0 Active PROAIR HFA 108 (90 BASE) MCG/ACT IN AERS two puffs four times daily 0 Active Spacer/Aero-Holding Chambers (AEROCHAMBER MINI CHAMBER) PREM Use as directed. 0 Activ e Nystatin [id number] UNIT/GM External Cream Apply 100,000 g topically to affected area as needed. 0 05/25/2023 Active Estradiol 1 MG Oral Tablet (Estrace) Take 1 Tablet by mouth in the morning. 0 05/25/2023 Active Albuterol Sulfate (2.5 MG/3ML) 0.083% Inhalation Nebulization Solution (Proventil) Inhale 1 Vial via nebulizer as needed. 0 05/25/2023 Active Lisinopril 20 MG Oral Tablet (Prinivil) Take 1 Tablet by mouth in the morning. 0 09/10/2023 Active oxyCODONE HCl 5 MG Oral Tablet (Oxy IR) Take 1 Tablet by mouth every 4 hours as needed for Pain, Severe. 7 Tablet 0 10/04/2023 Active Additional Information Patient not taking.Reported on 10/11/2023 documented as of this encounter (statuses as of 12/13/2023) Active Problems Problem Noted Date Diagnosed Date HAMIDA (obstructive sleep apnea) 09/29/2016 Overview: Auto CPAP 01/17 with heated Humidifier [place] nasal pillow, Supplies through [facility] Acute asthma exacerbation 09/29/2016 Anxiety state 09/29/2016 Joint pain 09/29/2016 HTN (hypertension) 09/29/2016 GERD (gastroesophageal reflux disease) 7 Hiatal hernia 09/29/2016 documented as of this encounter (statuses as of 12/13/2023) Resolved Problems Problem Noted Date Diagnosed Date Resolved Date Vaginitis 10/16/2012 09/29/2016 Candidal vulvovaginitis 10/13/201209/09 documented as of this encounter (statuses as of 12/13/2023) Immunizations No known immunizationsdocumented as of this encounter Social History Tobacco Use Types Packs/Day Years Used Date Smoking Tobacco: Never Smokeless Tobacco: Never Alcohol Use Standard Drinks/Week Comments No 0 (1 standard drink = 0.6 oz pur e alcohol) Sex and Gender Information Value Date Recorded Sex Assigned at Not on file Gender Identity Not on file Sexual Orientation Not on file Job Start Date Occupation Industry Not on file Not on file Not on file documented as of this encounter Plan of Treatment Upcoming Encounters Date Type Department Care Team (Late st Contact Info) Description 12/20/2023 3:15 PM EDT Telemedicine Orthopaedics [facility] [address] [place] [id number] Mark Martin MD [address] [place] [id number] 12/27/2023 9:30 AM EDT Office Visit [facility], [place] [address], [place] [id number] Zoltan Obregon MD [address] [place] [address] Health Maintenance Due Date Last Done Comments Pneumococcal Vaccine: Pediatrics (0 to 5 Years) and At-Risk Patients (6 to 64 Years) (1 of 2 - PCV) 1977 Depression Screening 1983 HIV Screening 1986 Albumin/Creatinine Ratio 1989 Hepatitis C Screening 1989 Hepatitis B (1 of 3 - 19+ 3-dose series) 1990 HPV/Co-Test 2001 Cervical Cancer Screening 10/13/2015 Pap Smear 10/13/2015 10/12/2012 Cologuard 2016 Colonoscopy 2016 Colorectal Cancer Screening 2016 Fecal Occult Blood Test 2016 10/15/2013, 10/12 Sigmoidoscopy 2016 Lipid Panel 09/28/2018 09/28/2013 Zoster Vaccines (1 of 2) 2021 Influenza Vaccine (FLU shot) (Season Ended) 2024 Mammogram 05/16/2024 05/16/2023, 100 01/2022, 05/12/2021, Additional history exists GFR 10/26/2024 11/25/2023, 11/06, 10/27/2023, Additional history exists Diabetes Screening 06/14/2026 11/25/2023, 1 08/14/2022, 09/28/2013 DTaP,Tdap,and Td Vaccines (2 - Td or Tdap) 12/06/2031 12/05/2021 COVID-19 Vaccine Completed 05/16/2023, 02/2022, 11/06/2021, Additional history exists GARDASIL-HPV IMMUNIZATION SERIES Aged Out No longer eligible based on patient's age to complete this topic MENINGOCOCCAL (MENACTRA/MENVEO) Aged Out No longer eligible based on patient's age to complete this topic documented as of this encounter Medical Devices Not on filedocumented as of this encounter Procedures Procedure Name Priority Date/Time Associated Diagnosis Comments RADIOLOGY EXAM - MRI (IMAGES ONLY, NO REPORT) Routine 12/02/2023 8:15 AM EDT documented in this encounter Results * RADIOLOGY EXAM - MRI (IMAGES ONLY, NO REPORT) (12/02/2023 8:15 AM EDT) 12/02/2023 8:14 AM EDT Narrative Scheduling, Silent - 12/13/2023 10:40 AM EDT This is an imaging study not interpreted or resulted by a [facility] or [facility] contracted radiologist. Zoltan Obregon MD RAD MRI-MRA documented in this encounter Care Teams Home Hospice Aide Relationship Specialty Start Date End Date Sylvia Ulloa PA-C [address] [place] [address] [place] [id number] PCP - General Physician [employer] 06/14/23 documented as of this encounter
--- OUTSIDE RECORDS SUMMARY | 2023-12-22 08:17 | External Medical Summary | Summary of Care ---
Author Name Unknown Organization [facility] Address [address] [place] [address] Phone [phone] Care Team Providers Care Lean Leader Name Role Phone Sylvia Ulloa PA-C Primary Care Provider Encounter Details Date Type Department Care Team (Late st Contact Info) Description 11/30/2023 Orders Only Neurosurgery, [place] [address] [place] [address] Zoltan Obregon MD [address] [place] [address] Allergies Active Allergy Reactions Criticality [...] Use as directed. 0 Activ e Nystatin [id number] UNIT/GM External Cream Apply 100,000 g topically [...] heated Humidifier Pilairo nasal pillow, Supplies through [facility] Acute asthma exacerbation 09/29/2016 Anxiety state [...] Description 12/20/2023 3:15 PM EDT Telemedicine Orthopaedics [facility] [address] [place] [address] Mark Martin MD [address] [place] [address] 12/27/2023 9:30 AM EDT Office Visit [facility], [place] [address], [place] [phone] Zoltan Obregon MD [address] [place] [address] Health Maintenance Due Date Last [...] - MRI (IMAGES ONLY, NO REPORT) Routine 11/30/2023 7:20 AM EDT documented in this encounter Results * RADIOLOGY EXAM - MRI (IMAGES ONLY, NO REPORT) (11/30/2023 7:20 AM EDT) 11/30/2023 7:18 AM EDT Narrative Scheduling, Silent - 12/13/2023 10:59 AM EDT This is an imaging study not interpreted or resulted by a [facility] or [facility] contracted radiologist. Zoltan Obregon MD RAD MRI-MRA documented in this encounter Care Teams Lean Leader Relationship Specialty Start Date End Date Sylvia Ulloa PA-C [address] [place] [address] [place] [address] PCP - General Physician Particle Board Supervisor 06/14/23 documented as of this encounter
--- OUTSIDE RECORDS SUMMARY | 2023-12-22 08:17 | External Medical Summary | Summary of Care ---
Author Name Unknown Organization [facility] Address [address] [place] [address] Phone [phone] Care Team Providers Care Technical Staff Engineer Name Role Phone Sylvia Ulloa PA-C Primary Care Provider Reason for Visit * Reason Onset Date Comments Advice 12/12/2023 Encounter Details Date Type Department Care Team (Late st Contact Info) Description 12/12/2023 Telephone [facility], [place] [address] [place] [address] Services, [facility] [address] [place] [address] Advice Allergies Active Allergy Reactions Criticality Noted Date [...] as of this encounter (statuses as of 12/12/2023) Medications Medication Sig Dispensed Refills Start Date End Date Status LANSOPRAZOLE 30 MG PO TBDP one tablet daily 0 Active GAVISCON 95-358 MG/15ML PO SUSP two teaspoons by mouth daily 0 Active PROAIR HFA 108 (90 BASE) MCG/ACT IN AERS two puffs four times daily 0 Active Spacer/Aero-Holding Chambers (AEROCHAMBER MINI CHAMBER) PREM Use as directed. 0 Activ e Nystatin [id number] UNIT/GM External Cream Apply 100,000 g topically [...] as of this encounter (statuses as of 12/12/2023) Active Problems Problem Noted Date Diagnosed Date HAMIDA (obstructive sleep apnea) 09/29/2016 Overview: Auto CPAP 01/17 with heated Humidifier Pilairo nasal pillow, Supplies through [facility] Acute asthma exacerbation 09/29/2016 Anxiety state 09/29/2016 Joint pain 09/29/2016 HTN (hypertension) 09/29/2016 GERD (gastroesophageal reflux disease) 7 Hiatal hernia 09/29/2016 documented as of this encounter (statuses as of 12/12/2023) Resolved Problems Problem Noted Date Diagnosed Date Resolved Date Vaginitis 10/16/2012 09/29/2016 Candidal vulvovaginitis 10/13/201209/09 documented as of this encounter (statuses as of 12/12/2023) Immunizations No known immunizationsdocumented as of this [...] on file documented as of this encounter Miscellaneous Notes * Telephone Encounter - Beata Alexander OSA - 12/12/2023 4:33 PM EDT This is being addressed in another TE from today. * Telephone Encounter - Lucia Trevino OSA - 12/12/2023 4:08 PM EDT Requested Information from caller: Who is calling patient Provider patient is established with: Mindi What is the concern or issue they are having: went to [facility] and her two discs werescanned in; is asking for him to review and to call her as soon possible Any additional details to add: no Pts phone number for nurse to call back: [phone] documented in this encounter Plan of Treatment Upcoming Encounters Date Type Department Care Team (Late st Contact Info) Description 12/20/2023 3:15 PM EDT Telemedicine Orthopaedics [facility] [place] [address] Mark Martin MD [address] [facility] [place] [address] 12/27/2023 9:30 AM EDT Office Visit Neurosurgery, [place] [address] [facility] [place] [address] Zoltan Obregon MD [address] [place] [address] Health Maintenance Due Date Last Done Comments [...] shot) (Season Ended) 2024 Mammogram 05/16/2024 05/16/2023, 01/2022, 05/12/2021, Additional history exists GFR 10/26/2024 10/27/2023, 10/07, 06/14/2023, Additional history exists Diabetes Screening 06/14/2026 06/14/2023, 09/28/2013 DTaP,Tdap,and Td Vaccines (2 - Td [...] Not on filedocumented as of this encounter Care Teams Technical Staff Engineer Relationship Specialty Start Date End Date Sylvia Ulloa PA-C [address] [place] [address] [place] [address] PCP - General Physician Airborne Operations Superintendent 06/14/23 documented as of this encounter
--- OUTSIDE RECORDS SUMMARY | 2023-12-22 08:17 | External Medical Summary | Summary of Care ---
Author Name Unknown Organization [facility] Address [address] [place] [address] Phone [phone] Care Team Providers Care Svp Research And Strategic Analysis Name Role Phone Sylvia Ulloa PA-C Primary Care Provider Encounter Details Date Type Department Care Team (Latest Contact Info) Description 12/02/2023 8:15 AM EDT - 12/02/2023 11:59 PM EDT Hospital Encounter Radiology [facility] [address] [place] [address] Discharge Disposition: Home - Self Care Allergies Active Allergy Reactions Criticality Noted Date [...] as of this encounter (statuses as of 12/14/2023) Medications Medication Sig Dispensed Refills Start Date End Date Status LANSOPRAZOLE 30 MG PO TBDP one tablet daily 0 Active GAVISCON 95-358 MG/15ML PO SUSP two teaspoons by mouth daily 0 Active PROAIR HFA 108 (90 BASE) MCG/ACT IN AERS two puffs four times daily 0 Active Spacer/Aero-Holding Chambers (AEROCHAMBER MINI CHAMBER) PREM Use as directed. 0 Activ e Nystatin [id number] UNIT/GM External Cream Apply 100,000 g topically [...] as of this encounter (statuses as of 12/14/2023) Active Problems Problem Noted Date Diagnosed Date HAMIDA (obstructive sleep apnea) 09/29/2016 Overview: Auto CPAP 01/17 with heated Humidifier Pilairo nasal pillow, Supplies through [facility] Acute asthma exacerbation 09/29/2016 Anxiety state 09/29/2016 Joint pain 09/29/2016 HTN (hypertension) 09/29/2016 GERD (gastroesophageal reflux disease) 7 Hiatal hernia 09/29/2016 documented as of this encounter (statuses as of 12/14/2023) Resolved Problems Problem Noted Date Diagnosed Date Resolved Date Vaginitis 10/16/2012 09/29/2016 Candidal vulvovaginitis 10/13/201209/09 documented as of this encounter (statuses as of 12/14/2023) Immunizations No known immunizationsdocumented as of this [...] Description 12/20/2023 3:15 PM EDT Telemedicine Orthopaedics [facility] [address] [place] [address] Mark Martin MD [address] [place] [address] 12/27/2023 9:30 AM EDT Office Visit [facility] [place] [address] [place], [place] [phone] Zoltan Obregon MD [address] [place], [place] [phone] Health Maintenance Due Date Last Done Comments [...] shot) (Season Ended) 2024 Mammogram 05/16/2024 05/16/2023, 10/0 01/2022, 05/12/2021, Additional history exists GFR 11/24/2024 11/25/2023, 11/06, 10/27/2023, Additional history exists Diabetes Screening 11/24/2026 11/25/2023, 1 08/14/2022, 09/28/2013 DTaP,Tdap,and Td Vaccines [...] interpreted or resulted by a [facility] or [employer] contracted radiologist. Zoltan Obregon MD RAD MRI-MRA documented in this encounter Care Teams Svp Research And Strategic Analysis Relationship Specialty Start Date End Date Sylvia Ulloa PA-C [address] [place] [address] PCP - General Physician Senior Supply Chain Analyst 06/14/23 documented as of this encounter
--- OUTSIDE RECORDS SUMMARY | 2023-12-22 08:17 | External Medical Summary | Summary of Care ---
Author Name Unknown Organization [facility] Address [address] [place] [address] Phone [phone] Care Team Providers Care Senior Environmental Practice Leader Name Role Phone Sylvia Ulloa PA-C Primary Care Provider Encounter Details Date Type Department Care Team (Latest Contact Info) Description 11/30/2023 7:20 AM EDT - 11/30/2023 7:39 AM EDT Hospital Encounter Radiology Film [place] [address] [place] [address] Discharge Disposition: Home - Self [...] Use as directed. 0 Activ e Nystatin [id number] UNIT/GM External Cream Apply 100,000 g topically [...] heated Humidifier Pilairo nasal pillow, Supplies through [facility] Acute asthma exacerbation 09/29/2016 Anxiety state 09/29/2016 [...] Description 12/20/2023 3:15 PM EDT Telemedicine Orthopaedics [facility] [address] [place] [address] Mark Martin MD [address] [place] [address] 12/27/2023 9:30 AM EDT Office Visit [facility], [place] [address] [place], [place] [phone] Zoltan Obregon MD [address] [place], [place] [phone] Health Maintenance Due Date Last Done Comments [...] interpreted or resulted by a [facility] or [employer] contracted radiologist. Zoltan Obregon MD RAD MRI-MRA documented in this encounter Care Teams Senior Environmental Practice Leader Relationship Specialty Start Date End Date Sylvia Ulloa PA-C [address] [place] [address] PCP - General Physician Hospice Consultant 06/14/23 documented as of this encounter
--- OUTSIDE RECORDS SUMMARY | 2023-12-22 08:17 | External Medical Summary | Summary of Care ---
Author Name Unknown Organization [facility] Address [address] [place] [address] Phone [phone] Care Team Providers Care Burn Nurse Name Role Phone Sylvia Ulloa PA-C Primary Care Provider Encounter Details Date Type Department Care Team (Late st Contact Info) Description 11/30/2023 Orders Only Neurosurgery, [place] [address] [place] [address] Zoltan Obregon MD [address] [place] [address] Allergies Active Allergy Reactions Criticality [...] Use as directed. 0 Activ e Nystatin [id number] UNIT/GM External Cream Apply 100,000 g topically [...] heated Humidifier Pilairo nasal pillow, Supplies through [facility] Acute asthma exacerbation 09/29/2016 Anxiety state 09/29/2016 [...] Description 12/20/2023 3:15 PM EDT Telemedicine Orthopaedics [facility] [address] [place] [address] Mark Martin MD [address] [place] [address] 12/27/2023 9:30 AM EDT Office Visit [facility], [place] [address] [place], [place] [phone] Zoltan Obregon MD [address] [place] [address] Health Maintenance Due Date Last [...] MRI (IMAGES ONLY, NO REPORT) Routine 11/30/2023 7:40 AM EDT documented in this encounter Results * RADIOLOGY EXAM - MRI (IMAGES ONLY, NO REPORT) (11/30/2023 7:40 AM EDT) 11/30/2023 7:40 AM EDT Narrative Scheduling, Silent - 12/13/2023 10:56 AM EDT This is an imaging study not interpreted or resulted by a [facility] or [facility] contracted radiologist. Zoltan Obregon MD RAD MRI-MRA documented in this encounter Care Teams Burn Nurse Relationship Specialty Start Date End Date Sylvia Ulloa PA-C [address] [place] [address] [place] [address] PCP - General Physician Radiologic Technology Teacher 06/14/23 documented as of this encounter
--- OUTSIDE RECORDS SUMMARY | 2023-12-22 08:17 | External Medical Summary | Summary of Care ---
Author Name Unknown Organization [facility] Address [address] [place] [address] Phone [phone] Care Team Providers Care Quarter Inspector Name Role Phone Sylvia Ulloa PA-C Primary Care Provider Encounter Details Date Type Department Care Team (Latest Contact Info) Description 11/30/2023 7:40 AM EDT - 11/30/2023 11:59 PM EDT Hospital Encounter Radiology Film File [address] [place] [address] Discharge Disposition: Home - Self [...] Use as directed. 0 Activ e Nystatin 786077 UNIT/GM External Cream Apply 100,000 g topically [...] heated Humidifier Pilairo nasal pillow, Supplies through [facility] Acute asthma exacerbation 09/29/2016 Anxiety state [...] Description 12/20/2023 3:15 PM EDT Telemedicine Orthopaedics [facility] [address] [place] [address] Mark Martin MD [address] [place] [address] 12/27/2023 9:30 AM EDT Office Visit [facility] [place] [address] [place], [place] [phone] Zoltan Obregon MD [address] [place], [place] [address] Health Maintenance Due Date Last Done Comments [...] interpreted or resulted by a [facility] or [employer] contracted radiologist. Zoltan Obregon MD RAD MRI-MRA documented in this encounter Care Teams Quarter Inspector Relationship Specialty Start Date End Date Sylvia Ulloa PA-C [address] [place] [address] PCP - General Physician Tubular Splitting Machine Tender 06/14/23 documented as of this encounter
--- OUTSIDE RECORDS SUMMARY | 2023-12-22 08:17 | External Medical Summary | Summary of Care ---
Author Name Unknown Organization [facility] Address [address] [place] [address] Phone [phone] Care Team Providers Care Field Training Manager Name Role Phone Sylvia Ulloa PA-C Primary Care Provider Reason for Visit * Reason Onset Date Comments Advice 12/12/2023 Encounter Details Date Type Department Care Team (Late st Contact Info) Description 12/12/2023 Telephone [facility], [place] [address] [place] [address] Services, [facility] [address] [place] [address] Advice Allergies Active Allergy Reactions Criticality Noted [...] Use as directed. 0 Activ e Nystatin 763443 UNIT/GM External Cream Apply 100,000 g topically [...] heated Humidifier Pilairo nasal pillow, Supplies through [facility] Acute asthma exacerbation 09/29/2016 Anxiety state [...] encounter Miscellaneous Notes * Telephone Encounter - Shanta Han OSA - 12/12/2023 3:56 PM EDT Discs have been uploaded * Telephone Encounter - Shanta Han OSA - 12/12/2023 3:24 PM EDT Pt dropped discs [facility] at [facility] to be scanned in. Pt sts these need uploaded immediately. * Telephone Encounter - Tarun Rodarte IV, PA-C - 12/12/2023 1:21 PM EDT MRI imaging disc will be sent to [facility] to be uploaded as they are no able to digitally pushed imaging. Patient has follow-up appointment with Dr. Florencio powell on 12/27/2023. In the meantime patient should reach out to her primary care in regards to workup for ear pain. Tarun Rodarte IV, PA-C 12/12/2023 1:24 PM * Telephone Encounter - Muna Gonzalez OSA - 12/12/2023 12:31 PM EDT Reached out to [facility]. Unable to electronically push imaging, mailing disc instead. Informed patient. Also gave her option to [facility] her disc to [facility] to be [facility]. Patient requesting direct urgent message be sent to provider to be seen sooner. Requesting call back LISS. * Telephone Encounter - Nicolasa Duran OSA - 12/12/2023 9:22 AM EDT Neuroscience Phone Call Form- Clinic has 24-48 hours to respond to caller If caller is calling back before that timeframe- There is no need to send another message to the pool, update current TE [facility] [place] Neurology Pool- All messages go through the [facility] Neuro [place]- [id number] Neurology Pool Numbers- [place] and [place] patients - follow normal process Ops req C Neurology ([place])- [id number] Ops req NE Neurology ([place]- [facility] and [facility] clinics Only)- [id number] Neurosurgery Pool Numbers- [place] patients- follow normal process Ops req Neuro[facility] [place] [id number] Ops req Neurosurgery [facility] ([place] Only) [id number] Requested Information from caller: Who is calling patient Provider patient is established with: Dr. Obregon What is the concern or issue they are having: Pt would like this message passed on urgently - pain in the left ear How long has the issue been going on: 12/12/23 Any additional details to add: no Pts phone number for nurse to call back: [phone] If forms need to be faxed- Please provide fax number: n/a Please make sure you verify pharmacy for anything medication related. Form to be used for established patients only (not new patients) documented in this encounter Plan of Treatment Upcoming Encounters Date Type Department Care Team (Late st Contact Info) Description 12/20/2023 3:15 PM EDT Telemedicine Orthopaedics [facility] [address] [place] [place] [address] Mark Martin MD [address] [place] [place] [address] 12/27/2023 9:30 AM EDT [facility] [address] [place] [address] Zoltan Obregon MD [address] [place] [address] Health Maintenance Due Date Last Done Comments [...] filedocumented as of this encounter Care Teams Field Training Manager Relationship Specialty Start Date End Date Sylvia Ulloa PA-C [address] [place] [address] PCP - General Physician Camera Machinist 06/14/23 documented as of this encounter
[2023-12-22] MEDS: PANTOprazole 40 MG TAB PO SCH (08:20)
[2023-12-22] MEDS ORDERED: ALUMINUM/MAGNESIUM SUSP 30 ML UDC PO PRN (09:00)
[2023-12-22 09:51] LABS: Hematocrit (blood only) 37.5 % (37.0-47.0); Hemoglobin 12.2 g/dl (12.0-16.0); Mean Corpuscular Hemoglobin 30.1 pg (25.0-34.0); Mean Corpuscular Hgb Conc 32.5 g/dL (32.0-36.0); Mean Corpuscular Volume 92.6 fL (80.0-100.0); Mean Platelet Volume 9.7 fL (9.4-12.4); Platelet Count 334 K/uL (130-400); RDW Coefficient of Variation 12.5 % (11.5-14.5); RDW Standard Deviation 42.5 fL (36.4-46.3); Red Blood Count 4.05 M/uL (4.20-5.40)
[2023-12-22 10:05] LABS: Calcium 9.1 mg/dl (8.6-10.3); Creatinine Clr Calc Pharmacy 81.5 ml/min; Est GFR (African American) 86.4 ml/min; Est GFR (Non-African American) 74.5 ml/min; Magnesium 2.1 mg/dl (1.7-2.4)
--- NOTE | 2023-12-22 13:02 | Cardiology Consultation ---
Date of Consultation December 22, 2023 Assessment & Plan (1) Exertional chest pain: (2) Coronary artery calcification seen on CT scan: Plan Impression: 53-year-old female with symptoms of exertional chest pain and dyspnea. High-sensitivity troponins negative x 4. EKG without acute ischemic changes. Echocardiogram showing a preserved LVEF of 55 to 59% without wall motion abnormalities or significant valvular disease. CT of the chest with evidence of moderate coronary artery calcifications Family history of premature coronary disease Plan: Chest pain: -Proceed with exercise stress echo to rule out ischemic cause to her symptoms--further recommendations pending results. -Given CT findings recommend starting aspirin 81 mg daily as well as rosuvastatin 20 mg daily. -Continue lisinopril 20 mg daily for blood pressure management. Case discussed with Dr. Burnett. Further recommendations pending assessment. I spent a total of 40 minutes on the date of service in preparation, delivery, and documentation of the care provided to the patient excluding any time spent in the performance of separately billed services. DIPIKA Craig Department of Cardiology, [facility] This chart was completed in part utilizing Speech Voice Recognition Software. Grammatical errors, random word insertions, pronoun errors, and incomplete sentences are an occasional consequence of this system due to software limitations, ambient noise, and hardware issues. Any formal questions or concerns about the content, text, or information contained within the body of this dictation should be directly addressed to the provider for clarification. Supervising Physician Co-Signing Physician Notes Attending attestation: Case reviewed with the advanced practitioner. I have personally performed a history and physical examination on the patient. I have reviewed the advanced practitioner's documentation on the date of service referenced in note, and I agree with, and take responsibility for the plan of care. Stress echocardiogram performed. Negative for inducible ischemia. Presenting symptoms not reproduced with exercise. Patient stable from a cardiac perspective for discharge. Given family history of coronary heart disease and coronary artery calcifications, ASA 81 mg daily and rosuvastatin 20 mg daily recommended. I spent a total of 20 minutes coordinating, documenting, and providing care for this patient excluding time spent in the performance of separately billed services or time spent by another provider. Greg Burnett DO History of Present Illness Reason for Consultation: Chest pain Requesting Physician: [facility] hospitalist Attending Physician: Maryanne Lemon MD History of Present Illness 53-year-old female presented to [facility] emergency department yesterday due to symptoms of exertional chest pressure when she was walking up her steps at home. She became very dyspneic. Pain radiated to her neck and down her left arm. Symptoms improved with rest. Currently chest pain-free. Upon entrance into the room patient resting in bed comfortably. Just ate lunch. No return of chest discomfort, shortness of breath. Denies palpitations. No further episodes of lightheadedness or dizziness. No orthopnea or PND. No lower extremity edema. Monitors blood pressure at home noting systolics averaging in the 120s on current regimen. Eager to go home. EKG 12/21: Normal sinus rhythm without ST segment changes. Labs: CBC stable. BMP unremarkable. Electrolytes within normal limits. High- sensitivity troponins negative x 4. D-Dimer 1999 CTA chest: No evidence of PE. Moderate coronary artery calcifications. Lower extremity Dopplers negative for DVT Echocardiogram: LVEF 55 to 60% without wall motion abnormalities or significant valvular disease. Past medical history: Hypertension HAMIDA Chronic pain History of submandibular gland removal surgery on 10/04/2023--ongoing pain on left side of her face, which extends into the left side of her neck and into the Left arm with arm numbness. Family history of premature artery disease: father having an OH with CABG x3 and stroke in his 60s, brother had an OH in his 40s. Mother HTN and DM Allergies Allergy/AdvReac Type Severity Reaction Status Date / Time amoxicillin Allergy Severe PCN-EDEMA Verified 12/21/23 12:49 FACE/LIPS/TONGUE cephalexin Allergy Severe SWELLING Verified 12/21/23 12:49 OF FACE & TONGUE codeine Allergy Severe FACE & Verified 12/21/23 12:49 TONGUE SWELL corn Allergy Severe Hives Unverified 12/21/23 12:49 Penicillins Allergy Severe EDEMA OF Verified 12/21/23 12:49 FACE/LIPS/TONGUE, SHORT OF BREATH/HIVES Sulfa (Sulfonamide Allergy Severe FACE Verified 12/21/23 12:49 Antibiotics) SWELLING/HIVES carisoprodol Allergy Intermediate HIVES/HEADA Verified 12/21/23 12:49 JENNA lorazepam Allergy Intermediate HEADACHES Verified 12/21/23 12:49 montelukast [From Singulair] Allergy Intermediate RASH/TONGUE Verified 12/21/23 12:49 FELT THICK duloxetine Allergy Unknown ON Verified 12/21/23 12:49 [facility] prednisone Allergy Unknown ON Verified 12/21/23 12:49 [facility] carbamazepine AdvReac Intermediate CHEST Verified 12/21/23 12:49 TIGHTNESS/N&V/SEVERE IBARRA/WEAKNESS clindamycin AdvReac Intermediate Gastrointestinal Verified 12/21/23 12:49 Upset gabapentin AdvReac Intermediate CHEST Verified 12/21/23 12:49 TIGHTNESS/N&V/SEVERE IBARRA/WEAKNESS metronidazole AdvReac Intermediate GI Verified 12/21/23 12:49 UPSET/HEADACHE Home Medications Medication Instructions Recorded Confirmed Type albuterol sulfate 2.5 mg/3 mL 2.5 mg inhalation Q4H PRN 02/12/21 12/21/23 History (0.083 %) solution for nebulization Shortness Of Breath Or Wheezing albuterol sulfate 90 mcg/actuation 2 puff inhalation QID PRN 02/12/21 12/21/23 History aerosol inhaler (ProAir HFA) Shortness Of Breath Or Wheezing aluminum hydrox-magnesium carb 95 30 ml PO DAILY 02/12/21 12/21/23 History mg-358 mg/15 mL oral suspension (Gaviscon) estradiol 1 mg tablet 1 mg PO QAM 02/12/21 12/21/23 History fluconazole 150 mg tablet 150 mg PO UD PRN YEAST INFECTION 02/12/21 12/21/23 History lansoprazole 30 mg capsule,delayed 30 mg PO QAM 02/12/21 12/21/23 History release lisinopril 20 mg tablet 20 mg PO HS 12/13/23 12/21/23 History nystatin 100,000 unit/gram topical 1 applic topical DIRECTED PRN 12/13/23 12/21/23 History cream Skin Irritation terconazole 0.8 % vaginal cream 1 applic vaginal UD PRN -- 12/21/23 12/21/23 History Patient History Medical History (Updated 12/22/23 @ 13:02 by DIPIKA Stein) History of asthma History of hypertension Surgical History (Updated 12/21/23 @ 15:41 by Jeny Smiley PA-C) Hx of submandibular gland removal S/P cholecystectomy S/P total abdominal hysterectomy History of appendectomy Family History Other Asthma Diabetes Hypertension Social History Smoking Status: Never smoker Second Hand Exposure: No; Do You Dip or Chew Tobacco: No; Hx Alcohol Use: No Hx Substance Use: No Preferred Language: Czech Communication Ability: Effective Lumber Mover Required: No Beliefs That Will Affect Care: None Current Living Situation: Spouse Feels Safe at Home: Yes Safety Concerns: Feels Safe At This Time Assistive Devices: None Review of Systems Review of Systems: All systems reviewed & are unremarkable except as noted in HPI & below Physical Exam Constitutional: WD/WN, vitals as above Eyes: PERRL, conjunctivae normal, anicteric sclerae ENMT: external ear and nose normal, oropharynx normal Neck: normal visual inspection and trachea midline Respiratory: normal respiratory effort, lungs clear to auscultation Cardiovascular: RRR, no murmur, no edema Heart Sounds: normal S1 and normal S2; no murmur Vessels: no JVD Extremities: no edema Skin: no rashes, warm and dry Neurologic: PERRL, EOMI, accommodation nl, no face palsy, no dysarthria Psychiatric: A+Ox3, euthymic affect Results & Data Vital Signs (Past 12 Hours) Vital Signs Temp Pulse Pulse Pulse Resp BP Pulse Ox 12/22/23 10:52 36.9 C 74 18 142/77 H 97 12/22/23 08:04 36.8 C 79 18 159/84 H 95 12/22/23 07:30 62 12/22/23 03:14 36.7 C 65 18 115/74 97 O2 Del Method 12/22/23 10:52 Room Air 12/22/23 08:04 Room Air 12/22/23 07:30 12/22/23 03:14 Room Air Laboratory Results Cardiac Enzymes 12/21/23 12/21/23 12/21/23 Range/Units 15:21 16:49 19:57 Troponin I High Sens 4.5 3.8 (0-14) pg/ml B-Natriuretic Peptide 48 (0-100) pg/ml 12/22/23 Range/Units 01:59 Troponin I High Sens 4.9 (0-14) pg/ml B-Natriuretic Peptide (0-100) pg/ml Coagulation 05/15/24 Range/Units 16:49 B-Natriuretic Peptide 48 (0-100) pg/ml CBC 12/22/23 Range/Units 09:18 WBC 7.10 (4.8-10.8) K/ul RBC 4.05 L (4.20-5.40) M/uL Hgb 12.2 (12.0-16.0) g/dl Hct 37.5 (37.0-47.0) % Plt Count 334 (130-400) K/uL Comprehensive Metabolic Panel 12/22/23 Range/Units 09:18 Sodium 140 (136-145) mmol/L Potassium 4.0 (3.5-5.1) mmol/L Chloride 108 H (98-107) mmol/L Carbon Dioxide 25 (21-32) mmol/L BUN 8 (6-23) mg/dl Creatinine 0.89 (0.6-1.2) mg/dl Glucose 121 H (70-99(Fasting)) mg/dl Calcium 9.1 (8.6-10.3) mg/dl Intake and Output 12/21/23 12/22/23 12/22/23 22:59 06:59 14:59 Intake Total 1250 / 2550 200 / 2550 Balance 1250 / 2550 200 / 2550 Intake: IV 1000 / 2100 Sodium Chloride 0.9% 1,000 ml @ 1000 / 2000 250 mls/hr IV .Q4H [facility] Rx#: [id number] Oral 250 / 450 200 / 450 Other: Weight 89 kg 89 kg Weight Measurement Method Built in [facility] Built in [facility]
--- NOTE | 2023-12-22 16:56 | Discharge Summary ---
Discharge Summary Date of Service December 22, 2023 Notes For Next Care Provider Please ensure continued followup. Pt wih noted coronary artery calcifications, family Hx. Stress test negative. Started on aspirin and statin daily per cardiology. Consider pain management referral Medication Changes From Visit aspirin 81mg daily rosuvastatin 20mg daily Admission HPI Per Admitting Provider This is a 53 yo F with PMHx of chronic pain, HAMIDA, HTN, GERD and hx of following with Dr. Obregon with neurosurgery as outpatient for chronic left anterior neck pain s/p submandibular gland removal in Sep 2023. She had outpatient MRI of the head and neck completed 12/02/23 however has not yet been back to see neurosurgery for discussion of the results, and they are not available in the [employer] system for review. Today pt presents for complain of chest pain, present with walking up a flight of stairs and associated shortness of breath, noticed yesterday. She admits to having increased chest pressure currently while lying in bed. Denies orthopnea or sob at rest. Pt notes having increased swelling in Left foot She does have some associated pain when I press on her chest wall, but states that it does not feel the same whenever she is doing exertional activities. Pt reports having lost 15 lbs since her submadibular surgery on 10/04/23 due to pain in the left side of her face, which extends into the left side of her neck and into the Left arm with arm numbness. Today, states that these things are not similar to her previous complaints and that her reasons for being here today are very different. Pt reports strong family hx with father having CT, stroke and triple bypass in his 60s, as well as brother with heart issues. Pt has mother with HTN and diabetes. Pt denies smoking, alcohol or ilicit drug use. Per recent neurosurgery outpatient note: diffuse L facial pain extending from forehead to mandible into L neck, posterior shoulder and into UE, extending to proximal forearm. This pain started more than eight months ago, significant hx LEFT submandibular gland excision 10/04/23 which seemed to exacerbate her pain. Followed closely with surgical team. Referred to physical therapy, although therapist was concerned to complete treatment until evaluated by training and development specialist. Neurosurgery requesting consideration of injecti on - also ordered MRI brain, C spine and brachial plexus along with MRA neck - studies have not been completed at this time. Minimal relief with medication management - significant reactions to multiple medications used for pain including opioids, gabapentin, carbamazepine, oral steroid, soma and cymbalta. Symptoms occur daily. Describes pain as "sharp, rope around L UE." Significant allodynia - noting increased pain with light touch, hair brushing her face or posterior shoulder. Unable to provide aggravating or alleviating factors - constantly there. Admits associated paresthesia L face rat her diffusely into L C spine and UE extending to proximal forearm. Has failed and/or reacted to oxycodone, topical lidocaine, cymbalta, gabapentin, carbamazepine, oral steroid, soma. Admission Exam Per Admitting Provider General: awake, alert, no apparent distress, weight obese female Head: Normocephalic, atraumatic ENT: PERRL, EOMI, no pharyngeal exudate, mucous membranes moist Chest: Clear to auscultation, on room air, no adventitious breath sounds Cardiac: Regular rate and rhythm, no murmur, no JVD, normal peripheral pulses, good capillary refill, minimal tenderness with palpation of the chest wall bilaterally Abdominal: NABS x 4 quadrants, soft, nondistended, nontender to palpation, no rebound or guarding Extremities: Normal inspection, no peripheral edema or erythema, calfs nontender to palpation Psych: Normal mood and affect Neuro: AAO x 3, strength intact bilaterally and rated 5/5, no motor deficits, speech is clear, no peripheral sensory deficits Principal Dx & Hospital Course #1 = Principal Diagnosis (1) Chest pain: (2) Dyspnea: (3) Chronic pain syndrome: (4) Hx of submandibular gland removal: (5) Asthma: (6) HTN (hypertension): (7) HAMIDA (obstructive sleep apnea): (8) GERD (gastroesophageal reflux disease): Plan Pt is a 53 yo F with PMHx significant for chronic pain, HAMIDA, HTN, GERD, chronic left anterior neck pain s/p submandibular gland removal in Sep 2023 presenting with chest pain with exertion. Chest Pain ACS rule out Trop x4 wnl, EKG with NSR Echo noting Grade I diastolic dysfunction, EF 55-60% Chest XAY noting no acute disease D dimer elevated, CTA chest noting moderate coronary artery calcifications but no PE Doppler LLE with no noted DVT (pt reported previous swelling there) Biofire negative Cardiology was consulted, appreciate recs -s/p inpatient stress test on 12/21, negative for ischemia -recommended discharge home with daily aspirin 81mg and rosuvastatin 20mg daily Chest pain resolved on discharge. Consider pain management consult after discharge as well especially if pain recurs- pt notes chronic pain in her face and down her neck. Close PCP followup after discharge Discharge Exam General: Alert, oriented. No acute distress Skin: No noted rashes or bruises Psych: Appropriate mood and affect Neuro: No gross deficits HEENT: NC/AT Chest: Nontender to palpation. CV: RRR, Normal s1, s2. No murmurs appreciated Resp: Breath sounds clear bilaterally, no increased effort of breathing. Abdomen: BS+. Soft, nontender, nondistended. Extremities: No edema in lower extremities bilaterally. Updated Medication List Medication Instructions Recorded Confirmed Type albuterol sulfate 2.5 mg/3 mL 2.5 mg inhalation Q4H PRN 02/12/21 12/21/23 History (0.083 %) solution for nebulization Shortness Of Breath Or Wheezing albuterol sulfate 90 mcg/actuation 2 puff inhalation QID PRN 02/12/21 12/21/23 History aerosol inhaler (ProAir HFA) Shortness Of Breath Or Wheezing aluminum hydrox-magnesium carb 95 30 ml PO DAILY 02/12/21 12/21/23 History mg-358 mg/15 mL oral suspension (Gaviscon) estradiol 1 mg tablet 1 mg PO QAM 02/12/21 12/21/23 History fluconazole 150 mg tablet 150 mg PO UD PRN YEAST INFECTION 02/12/21 12/21/23 History lansoprazole 30 mg capsule,delayed 30 mg PO QAM 02/12/21 12/21/23 History release lisinopril 20 mg tablet 20 mg PO HS 12/13/23 12/21/23 History nystatin 100,000 unit/gram topical 1 applic topical DIRECTED PRN 12/13/23 12/21/23 History cream Skin Irritation terconazole 0.8 % vaginal cream 1 applic vaginal UD PRN -- 12/21/23 12/21/23 History aspirin 81 mg tablet,delayed 81 mg PO QAM #30 tabs 12/22/23 Rx release rosuvastatin 20 mg tablet (Crestor) 20 mg PO HS #30 tabs 12/22/23 Rx Hospital Stay Data Consultations 12/21/23 15:14 ED Decision to Admit Stat 12/22/23 12:41 Consult Cardiology Routine Diagnostic Imagining Performed 12/21/23 11:45 CT angio chest PE protocol Stat 12/21/23 13:36 US venous doppler LE LT Stat Chest X-Ray 12/21/23 09:52 XR chest 1V portable CLINICAL HISTORY: cp, sob TECHNIQUE: Single frontal radiograph of the chest was obtained. Comparison: None available at the time of this dictation. FINDINGS: No lines and tubes are seen. The cardiomediastinal silhouette is normal. The lungs are clear. No evidence of pleural effusion or pneumothorax. IMPRESSION: No acute chest disease. ACT 112: Negative or not required by law. Electronically signed by: Alfredo Wray M.D. 12/21/2023 10:28 AM Chest CTA 12/21/23 11:45 CT angio chest PE protocol CT DOSE: 668.77 mGy.cm HISTORY: 53 years-old Female with PE. Acute shortness of breath TECHNIQUE: Multiple CTA images of the chest were obtained after the intravenous administration of 120 ml Optiray. Coronal and sagittal MIPS were obtained from the axial data set and were submitted for review. All measurements were obtained according to NASCET criteria. A dose lowering technique was utilized adhering to the principles of ALARA. COMPARISON: Chest radiograph of same day, chest CT 06/24/2015 FINDINGS: CTA: The heart is normal in size. Moderate coronary artery calcifications. Unremarkable thoracic aorta. No pulmonary emboli identified. The subsegmental branches are not well evaluated secondary to respiratory motion. CT CHEST: Unremarkable thyroid. No lymphadenopathy. There is no pneumothorax, pleural effusion, airspace consolidation or pulmonary edema. The central airways are patent. No acute upper abdominal abnormality. Colonic diverticulosis. Unremarkable soft tissues. No acute fracture. IMPRESSION: Unremarkable CTA of the chest. No pulmonary emboli identified. ACT 112: Negative or not required by law. The above report was generated using voice recognition software. It may contain grammatical, syntax or spelling errors. Electronically signed by: Tacho Dugan M.D. 12/21/2023 12:58 PM Venous Doppler Study 12/21/23 13:36 LEFT LOWER EXTREMITY VENOUS DOPPLER HISTORY: Acute pain and swelling of the left lower leg edema COMPARISON STUDY: 02/12/2021 FINDINGS: There is normal compressibility, flow, and augmentation within the left lower extremity deep venous system. IMPRESSION: No DVT within the left lower extremity. ACT 112: Negative or not required by law. Electronically signed by: Tacoh Dugan M.D. 12/21/2023 2:56 PM Discharge Instructions Given to Patient (Per Discharging Provider) Maryanne, You were seen by Cardiology and had a stress test done that did not show a cardiac reason for your chest pain. They did note coronary artery calcifications on chest imaging and recommend that you take a daily aspirin and cholesterol medication. Those have been sent to the pharmacy for you. It is reassuring that your chest pain has since resolved. Please keep close follow up with your primary care provider after discharge. Please do not hesitate to come back to the emergency room if your symptoms worsen or return. It was a pleasure taking care of you while you were here. Total Time Total Time Spent Total Time Spent (In Minutes): 75
[2023-12-22] MEDS: ATROPINE SULFATE 0.1 MG/ML 10ML SYR IV ONE (17:04)
[2023-12-22] MEDS: METOPROLOL TARTRATE 1 MG/ML VIAL IV ONE (17:05)
[2023-12-22] MEDS: DOBUTamine HCL 12.5 MG/ML 20 ML VIAL IV ONE (17:05)
[2023-12-22] MEDS ORDERED: ROSUVASTATIN CALCIUM 20 MG TAB PO SCH (21:00)
[2023-12-23] MEDS ORDERED: ASPIRIN 81 MG ECTAB PO SCH (09:00)
== END 2023-12-22 17:48 | disposition home or self-care (01) ==
LOC: 2N 09:18 → ED 09:18 → SUATTDRO 16:12 → 2N 18:39